=== PATIENT | female | born 1955 | race Caucasian/White ===

== ENCOUNTER 2021-07-23 07:52 | Outpatient (CLI) | payer MEDICARE, SELFPAY ==
--- NOTE | 2021-07-23 08:00 | NM_ITS ---
WS: [id number] NUCLEAR MEDICINE GASTRIC STUDY CLINICAL INFORMATION: R19.4 - Change in bowel habit TECHNIQUE: Following oral ingestion of cooked egg mixed with 0.97 mCi technetium 99m sulfur colloid, anterior images of the stomach were obtained over the course of 90 minutes. Activity curve was perfor med over the course of 90 minutes with linear regression analysis. COMPARISON: None. FINDINGS: Cooked egg mixed with 0.97 mCi technetium 99m sulfur colloid mixture. Normal stomach contour. Signifi cantly delayed gastric emptying compatible with gastroparesis. T1/2 half = 377 minutes (normal is 45-110 minutes) Only 12% emptying at 2 hours. 88% retention at 2 hours. (Normal 30-60% at 2 hours) NM/[place] gastric [place] st 6[address]37 IMPRESSION: Significantly delayed gastric emptying compatible with gastroparesis *Normal median T1 half 90 minutes for solid egg meal (45-110 minutes). Delayed gastric retention is defined as 90% retained at 1 hour, 60% at 2 hour s, 30% at 3 hours, and 10% at 4 hours (normal percent gastric retention is 37-9 0% at 1 hour, 30-60% at 2 hours, and 0-10% at 4 hours).
== END 2021-07-23 07:53 | disposition home or self-care (01) ==
PROVIDERS: Visit Provider Surgery
DX: R19.4 Change in bowel habit (principal); R10.9 Unspecified abdominal pain
CPT/HCPCS: 78264; A9541

== ENCOUNTER 2021-08-16 06:23 | Day surgery (SDC) | payer MEDICARE, SELFPAY ==
[2021-08-13 15:10] VITALS: BMI 37.2
[2021-08-16 06:36] VITALS: BP 177/85; PULSE 123; RESP 16; TEMP 36.2; O2SAT 95
[2021-08-16] MEDS: sodium chloride 0.9% 1,000 ML 30 ML IV (06:41)
--- NOTE | 2021-08-16 06:49 | P.HP_ITS ---
Same Day Surgery H&P Indication for Procedure/HPI DATE OF PROCEDURE: August 16, 2021 CHIEF COMPLAINT/INDICATIONFOR SURGICAL PROCEDURE: Abdominal pain PREOP DIAGNOSIS: Change in bowel habits/abdominal pain PLANNED PROCEDURE: Operation Date: 08/16/21 07:30 Proposed Procedures p EGD(Not Applicable) - Adrian Kennedy MD s Egd 80158/colonoscopy 16105/abd pain R10.9/R19.4 change in bowel habits(Not Applicable) - Adrian Kennedy MD 06/24/2021 This is a pleasant 66 years old female patient with a current weight of 200 pounds and a BMI of 35.4, she comes today escorted by her and she has been having change in bowel habits for quite some time. Patient reports history of diarrhea, nonbloody in nature, has been going on for quite some time.? She reports change in medications of her diabetes but that happened after she started having diarrhea as she does not think it is related to.? Patient denies history of recent travels, antibiotics except for the antibiotics that she was placed on when as she was tested for E. coli according to her knowledge per her stool.? Reports history of water from a well but no specific concern with that regard. no history of sick contacts, history of thyroid disorders for her hypothyroidism and has been on medical management.? Patient reports associated crampy abdominal pain.? Nothing seems to make it better or worse which is associated with vomiting. Patient reports that her gallbladder was taken out via laparoscopic approach back in 1991 and she mentions that she thinks that she has phantom gallbladder attacks her diarrhea is associated with bouts of constipation and her last colonoscopy was about 10 years ago.? Patient denies history of colon cancer and she had a CT scan done recently in [place] per her Primary care provider and that was reported as normal.? Yet I do not have the disc or report available at this point also I do not have any of the lab work that was obtained.? Patient also gives history of fetid and smelly odor on burping which made me concerned about potential underlying gastroparesis associated with her diabetes that make her food is not emptying appropriately and gets fermented in her stomach. Patient reports history of nausea and vomiting associated with previous anesthesia. Outside records were retrieved and a CT scan of the abdomen and pelvis with contrast showed #1 moderate amount stool throughout the colon.? Diverticulosis but no acute diverticulitis. 2.? There is fluid collection without rim enhancement or internal air.? Possible seroma 4 x 2.3 cm.? This is of midline lower abdomen superficial tissues.? No adjacent inflammation to suggest infection. Right hip arthroplasty causing metallic artifact.? Liver, spleen, adrenal glands, kidneys and pancreas show no significant abnormality/change.? Some scarring of the right kidney.? Cholecystectomy clips.? Mild to moderate atherosclerotic disease. We will plan still to proceed with diagnostic EGD and colonoscopy in addition to gastric emptying studies to rule out gastroparesis. Gastric emptying studies were done 07/23/2021 that did show Significantly delayed gastric emptying compatible with gastroparesis ROS All systems have been reviewed negative except as per the above or per problem list Medications/Allergies* Home Medications Medication Instructions Recorded Confirmed Type clopidogrel 75 mg tablet 75 mg PO DAILY 06/24/21 08/13/21 History dulaglutide 3 mg/0.5 mL 3 mg SUBCUT DIRECTED 06/24/21 08/16/21 History subcutaneous pen injector (Trulicity) glipizide 5 mg tablet 5 mg PO DAILY 06/24/21 08/16/21 History levothyroxine 50 mcg capsule 50 mcg PO DAILY 06/24/21 08/16/21 History metoprolol succinate 100 mg 100 mg PO DAILY 06/24/21 08/16/21 History tablet,extended release 24 hr triamterene 37.5 1 cap PO DAILY 06/24/21 08/16/21 History mg-hydrochlorothiazide 25 mg capsule ramipril 5 mg capsule 5 mg PO DAILY 07/09/21 08/16/21 History Allergies/Adverse Reactions Allergy/AdvReac Type Severity Reaction Status Date / Time hydrocodone Allergy Severe vomiting Verified 08/16/21 06:51 meperidine [From Demerol] Allergy Severe vomiting Verified 08/16/21 06:51 nalbuphine [From Nubain] Allergy ADR-Vomitin Verified 08/16/21 06:51 g Current Medications: Generic Name Dose Route Start Last Admin Trade Name Freq PRN Reason Stop Dose Admin Sodium Chloride 1,000 mls @ 30 mls/hr 08/16/21 06:30 08/16/21 06:41 Sodium Chloride 0.9% IV 30 mls/hr .Q24H CAITIE Administration Pertinent History/Comorbid Conditions* Medical History (Updated 07/11/21 @ 07:18 by Jami Rizzo DO) Benign essential HTN Family history of patent foramen ovale Hypothyroidism (acquired) Lymphoma in remission NAWAF on CPAP Type 2 diabetes mellitus, without long-term current use of insulin Surgical History (Updated 07/09/21 @ 09:21 by Jami Rizzo DO) History of abdominoplasty 2016 History of cholecystectomy 1992 - lap ashtyn History of hysterectomy 2013 - partial - still has one ovary History of lateral meniscus repair of left knee History of lateral meniscus repair of right knee History of right hip replacement 2018 History of shoulder surgery Right - scope History of stem cell transplant Family History (Updated 06/24/21 @ 09:24 by Alyssia Escobar) CAD (coronary artery disease) Dementia Denies family history of Diabetes Chronic kidney disease (CKD) Cancer Stroke Social History Smoking and tobacco status: never smoked Alcohol intake: never Lives independently: Yes Household members: spouse Marital status: Pertinent Exam Findings alert, oriented x 3, regular rate & rhythm and procedure specific exam findings (Abdominal examination nontender nondistended soft) Recommendations Surgery/Procedure today (Diagnostic EGD and colonoscopy) Coding Level of Care Code Acute Packaging Line Attendant for Anastasia Wang
--- NOTE | 2021-08-16 07:04 | P.ANESASSM_ITS ---
Pre-Anesthetic Assessment Height/Weight: Height 1.6 m Weight 95.254 kg Temp Pulse Resp BP Pulse Ox 97.2 F L 123 H 16 177/85 95 08/16/21 06:36 08/16/21 06:36 08/16/21 06:36 08/16/21 06:36 08/16/21 06:36 Preop Diagnosis: Change in bowel habits/abdominal pain Operation Date: 08/16/21 07:30 Proposed Procedures p EGD(Not Applicable) - Adrian Kennedy MD s Egd 64702/colonoscopy 53571/abd pain R10.9/R19.4 change in bowel habits(Not Applicable) - Adrian Kennedy MD Familial anesthetic complications: PONV Was Beta Vivian taken within 24 hours: Yes Was Clonidine taken within 24 hours: N/A Last intake: Intake Last Liquid Date 08/15/21 Last Liquid Time 22:30 Last Solid Date 08/14/21 Last Solid Time 00:00 Last Intake: 22:30 Social No alcohol and No tobacco Exam alert, oriented x 3, clear to auscultation bilaterally and regular rate & rhythm Airway Submandibular: within normal limits Cervical ROM: within normal limits Mallampati: Class II Dentition: full Pulmonary Sleep Apnea (CPAP) CV/HEM Arrythmia (rapid HR), Deep Vein Thrombosis and Hypertension PFO Chronic Renal Insufficiency (blood clot to kidney after surgery) Hepatic None reported GI Gastroesophageal Reflux Disease Metabolic Diabetes Mellitus (184) Musc/skel Lower Back Pain Neuropsych None reported Anesthetic Plan ASA status: 3 Anesthesia: MAC Medications/Allergies Home Medications Medication Instructions Recorded Confirmed Last Taken Type clopidogrel 75 mg tablet 75 mg PO DAILY 06/24/21 08/13/21 1 Week Ago History ~08/06/21 dulaglutide 3 mg/0.5 mL 3 mg SUBCUT DIRECTED 06/24/21 08/16/21 08/12/21 [facility] glipizide 5 mg tablet 5 mg PO DAILY 06/24/21 08/16/21 08/15/21 History levothyroxine 50 mcg capsule 50 mcg PO DAILY 06/24/21 08/16/21 08/15/21 History metoprolol succinate 100 mg 100 mg PO DAILY 06/24/21 08/16/21 08/15/21 History tablet,extended release 24 hr triamterene 37.5 1 cap PO DAILY 06/24/21 08/16/21 08/15/21 History mg-hydrochlorothiazide 25 mg capsule ramipril 5 mg capsule 5 mg PO DAILY 07/09/21 08/16/21 08/15/21 History Allergies Allergy/AdvReac Type Severity Reaction Status Date / Time hydrocodone Allergy Severe vomiting Verified 08/16/21 06:51 meperidine [From Demerol] Allergy Severe vomiting Verified 08/16/21 06:51 nalbuphine [From Nubain] Allergy ADR-Vomitin Verified 08/16/21 06:51 g Current Medications Generic Name Dose Route Start Last Admin Trade Name Freq PRN Reason Stop Dose Admin Sodium Chloride 1,000 mls @ 30 mls/hr 08/16/21 06:30 08/16/21 06:41 Sodium Chloride 0.9% IV 30 mls/hr .Q24H CAITIE Administration PFSH Anesthesia Medical History (Updated 07/11/21 @ 07:18 by Jami Rizzo DO) Benign essential HTN Family history of patent foramen ovale Hypothyroidism (acquired) Lymphoma in remission NAWAF on CPAP Type 2 diabetes mellitus, without long-term current use of insulin Surgical History (Updated 07/09/21 @ 09:21 by Jami Rizzo DO) History of abdominoplasty 2016 History of cholecystectomy 1991 - lap ashtyn History of hysterectomy 2012 - partial - still has one ovary History of lateral meniscus repair of left knee History of lateral meniscus repair of right knee History of right hip replacement 2018 History of shoulder surgery Right - scope History of stem cell transplant Family History Other CAD (coronary artery disease) Dementia Denies family history of Diabetes Chronic kidney disease (CKD) Cancer Stroke Social History Smoking and tobacco status: never smoked Alcohol intake: never Lives independently: Yes Household members: spouse Marital status: Data Anesthesia Cardiac Studies: No Data to Display
[2021-08-16 08:19] VITALS: BP 118/75; PULSE 102; RESP 16; TEMP 36.6; O2SAT 97
[2021-08-16 08:35] VITALS: BP 121/80; PULSE 97; RESP 18; O2SAT 99
== END 2021-08-16 09:14 | disposition home or self-care (01) ==
PROVIDERS: Visit Provider Surgery
PROC: 0DJ08ZZ Inspection of Upper Intestinal Tract, Via Natural or Artificial Opening Endoscopic (ICD-10-PCS; CPT 43235; principal; 2021-08-16 07:30)
PROC: 0DJD8ZZ Inspection of Lower Intestinal Tract, Via Natural or Artificial Opening Endoscopic (ICD-10-PCS; CPT 45378; 2021-08-16 07:30)
DX: R10.9 Unspecified abdominal pain (principal); K57.30 Diverticulosis of large intestine without perforation or abscess without bleeding; D13.1 Benign neoplasm of stomach; K29.70 Gastritis, unspecified, without bleeding; K29.80 Duodenitis without bleeding; R19.4 Change in bowel habit; I10 Essential (primary) hypertension; E03.9 Hypothyroidism, unspecified; G47.33 Obstructive sleep apnea (adult) (pediatric); E11.9 Type 2 diabetes mellitus without complications; Z79.4 Long term (current) use of insulin
CPT/HCPCS: 43239; 45378; 83630; 87506; 88305; J2704; J7030

== ENCOUNTER 2021-08-21 13:25 | Outpatient (CLI) | payer MEDICARE, SELFPAY | END 2021-08-21 13:26 | disposition home or self-care (01) | PROVIDERS: Visit Provider Surgery | DX: Z01.89 Encounter for other specified special examinations (principal) | CPT/HCPCS: 83630; 87506 ==

== ENCOUNTER → 2021-08-29 14:25 | Outpatient (BNVA) | payer MEDICARE, SELFPAY | PROVIDERS: Visit Provider Surgery | DX: K57.31 Diverticulosis of large intestine without perforation or abscess with bleeding (principal); K29.90 Gastroduodenitis, unspecified, without bleeding; E11.43 Type 2 diabetes mellitus with diabetic autonomic (poly)neuropathy; K31.84 Gastroparesis; E66.9 Obesity, unspecified | CPT/HCPCS: 99213 ==

== ENCOUNTER → 2022-01-06 10:33 | Outpatient (BNVA) | payer MEDICARE, SELFPAY | PROVIDERS: Visit Provider Surgery | DX: E66.9 Obesity, unspecified (principal); E11.43 Type 2 diabetes mellitus with diabetic autonomic (poly)neuropathy; K31.84 Gastroparesis; Z68.35 Body mass index [BMI] 35.0-35.9, adult | CPT/HCPCS: 99213 ==

== ENCOUNTER → 2022-01-15 14:27 | Outpatient (BNVA) | payer MEDICARE, SELFPAY | PROVIDERS: Visit Provider Internal Medicine Endocrinology, Diabetes & Metabolism | DX: E11.9 Type 2 diabetes mellitus without complications (principal) | CPT/HCPCS: 80048 ==

== ENCOUNTER → 2022-02-04 13:48 | Outpatient (BNVA) | payer MEDICARE, SELFPAY | PROVIDERS: Visit Provider Internal Medicine Endocrinology, Diabetes & Metabolism | DX: R79.89 Other specified abnormal findings of blood chemistry (principal) | CPT/HCPCS: 80076 ==

== ENCOUNTER 2023-12-27 13:52 | Emergency (ER) | payer MEDICARE, SELFPAY ==
[2023-12-27 14:30] VITALS: BP 150/80; PULSE 68; RESP 18; TEMP 36.5; O2SAT 99; BMI 40.7
--- NOTE | 2023-12-27 14:47 | W.ED.BACK ---
HPI - Back Pain/Injury General: Chief Complaint: Back Pain/Injury Stated Complaint: fall/ low back pain Time Seen by Provider: 12/27/23 14:46 History of Present Illness: 68-year-old female comes in today for evaluation of injuries from a trip and fall last night. Patient reports that she was walking across the yard and tripped in a hole causing her to fall forward. Patient caught herself with outstretched arms. Patient reports pain and the pelvis and in the spine. Patient is able to ambulate with minimal difficulty. Patient has been using ibuprofen and menthol patches to help with her discomfort. Patient appears nontoxic. Patient appears in no acute distress. Related Data Home Medications Medication Instructions Recorded Confirmed clopidogrel 75 mg tablet 75 mg PO DAILY 06/24/21 01/08/22 dulaglutide 3 mg/0.5 mL 3 mg SUBCUT DIRECTED 06/24/21 01/08/22 [facility] levothyroxine 50 mcg capsule 50 mcg PO DAILY 06/24/21 01/08/22 metoprolol succinate 100 mg 100 mg PO DAILY 06/24/21 01/08/22 tablet,extended release 24 hr triamterene 37.5 1 cap PO DAILY 06/24/21 01/08/22 mg-hydrochlorothiazide 25 mg capsule ramipril 5 mg capsule 5 mg PO DAILY 07/09/21 01/08/22 alendronate 70 mg tablet mg PO .1 a week 01/06/22 01/08/22 atorvastatin 80 mg tablet 80 mg PO DAILY 01/06/22 01/08/22 empagliflozin 25 mg tablet 25 mg PO DAILY 01/06/22 01/08/22 (Jardiance) glipizide 5 mg tablet 10 mg PO DAILY 01/06/22 01/08/22 Previous Rx's Medication Instructions Recorded pantoprazole 40 mg tablet,delayed 40 mg PO DAILY 30 days #30 tabs 08/16/21 release (Protonix) pantoprazole 40 mg tablet,delayed 40 mg PO DAILY 30 days #30 tabs 01/06/22 release (Protonix) Allergies Allergy/AdvReac Type Severity Reaction Status Date / Time hydrocodone Allergy Severe vomiting Verified 12/27/23 14:30 meperidine [From Demerol] Allergy Severe vomiting Verified 12/27/23 14:30 nalbuphine [From Nubain] Allergy ADR-Vomitin Verified 12/27/23 14:30 g Review of Systems General: Reports: 10 or more systems reviewed and unremarkable except in HPI and below PFSH ED PFSH: Medical History Benign essential HTN Family history of patent foramen ovale Hypothyroidism (acquired) Lymphoma in remission NAWAF on CPAP Type 2 diabetes mellitus, without long-term current use of insulin Surgical History History of abdominoplasty 2016 History of cholecystectomy 1991 - lap ashtyn History of hysterectomy 2013 - partial - still has one ovary History of lateral meniscus repair of left knee History of lateral meniscus repair of right knee History of right hip replacement 2018 History of shoulder surgery Right - scope History of stem cell transplant Family History Other CAD (coronary artery disease) Dementia Denies family history of Diabetes Chronic kidney disease (CKD) Cancer Stroke Social History Smoking and tobacco/nicotine status: never used tobacco/nicotine Alcohol intake: never Substance/Drug Use: never Lives independently: Yes Household members: spouse Marital status: Physical Exam Const: COMMON NORMALS: alert HENMT: COMMON NORMALS: normocephalic HEAD & SCALP: normocephalic Neck/C-Spine: COMMON NORMALS: full ROM CERVICAL SPINE: Yes cervical ROM normal and Yes Paracervical muscle tenderness Resp: COMMON NORMALS: normal respiratory effort Cardio: COMMON NORMALS: regular rate RATE: regular rate Back/Pelvis: THORACIC SPINE/UPPER BACK: No thoracic spinal tenderness and Yes paraspinal muscle tenderness LUMBAR SPINE/LOWER BACK: No lumbar spinal tenderness and Yes paraspinal muscle tenderness Extremity: COMMON NORMALS: normal to inspection Neuro: SENSORIUM/ORIENTATION: Yes alert Skin: COMMON NORMALS: turgor normal GENERAL SKIN EXAM: turgor normal Course Vital Signs: Vital signs: Vital Signs Temperature 97.7 F 12/27/23 14:30 Pulse Rate 68 12/27/23 14:30 Respiratory Rate 18 12/27/23 14:30 Blood Pressure 150/80 12/27/23 14:30 Pulse Oximetry 99 12/27/23 14:30 MDM - Back Pain/Injury Medical Decision Making 68-year-old female comes in today for complaints of neck, back, and pelvis pain. Patient tripped and fell last night and since then has had increased pain and discomfort. Patient is concerned due to a history of osteopenia. Differential diagnosis includes muscle strain, fracture, contusion. Wet read of the x-rays of the neck, thoracic, lumbar, and pelvis noted no fractures or dislocation. Patient reports understanding of exam and recommendations for treatment. Patient was recommended to follow-up with primary care for further instructions. Patient was recommended return to the ER for new concerns. XR interpretation done by ED provider, pending radiology final review Discharge Plan Discharge Patient Disposition: Home Clinical Impression: Muscle strain, Neck pain Fall from slip, trip, or stumble Qualifiers: Encounter type: initial encounter Qualified Code(s): W01.0XXA - Fall on same level from slipping, tripping and stumbling without subsequent striking against object, initial encounter Back pain Qualifiers: Back pain location: low back pain Chronicity: acute Back pain laterality: bilateral Sciatica presence: without sciatica Qualified Code(s): M54.50 - Low back pain, unspecified Condition: Stable Prescriptions: No Action clopidogrel 75 mg tablet 75 mg PO DAILY Hold Instructions: Resume on 08/21/21. triamterene-hydrochlorothiazid 37.5-25 mg capsule 1 cap PO DAILY metoprolol succinate 100 mg tablet extended release 24 hr 100 mg PO DAILY levothyroxine 50 mcg capsule 50 mcg PO DAILY Trulicity 3 mg/0.5 mL pen injector 3 mg SUBCUT DIRECTED Rx Instructions: weekly glipizide 5 mg tablet 10 mg PO DAILY ramipril 5 mg capsule 5 mg PO DAILY atorvastatin 80 mg tablet 80 mg PO DAILY Jardiance 25 mg tablet 25 mg PO DAILY pantoprazole [Protonix] 40 mg tablet,delayed release (DR/EC) 40 mg PO DAILY 30 Days Qty: 30 3RF alendronate 70 mg tablet PO .1 a week Protonix 40 mg tablet,delayed release (DR/EC) 40 mg PO DAILY 30 Days Qty: 30 3RF Discharge Orders: Discharge ED (Routine); Ordered 12/27/23 Ordered By: Brett Gomez Discharge Diet: Usual diet Discharge Activity: Increase activity as tolerated Patient Instructions: Musculoskeletal Pain (ED) Activity Restrictions/Additional Instructions: Continue with your [id number] treatments for your pain. Drink plenty of water with medication. Use cold packs or warm soaks for further pain relief. Follow-up with primary care for further instructions. Return to ED for new concerns. Coding Level of Care Code ED [employer]inated [employer] Assembler And Gluer for Anastasia Wang
--- NOTE | 2023-12-27 14:57 | XRR_ITS ---
PROCEDURE INFORMATION: Exam: XR Thoracic Spine Exam date and time: 12/27/2023 3:16 PM Age: 68 years old Clinical indication: Injury or trauma; Fall; Blunt trauma (contusions or hematomas) TECHNIQUE: Imaging protocol: Radiologic exam of the thoracic spine. Views: 3 views. COMPARISON: CR XR cervical spine 3V* [id number] 12/27/2023 3:16 PM FINDINGS: Bones/joints: Mild multilevel anterior osteophytes of the thoracic spine. No compression deformity. No spondylolisthesis. Soft tissues: Unremarkable. Vasculature: Vascular calcifications. XR/XR thoracic spine 3V* [id number] IMPRESSION: No posttraumatic changes in the thoracic spine.
--- NOTE | 2023-12-27 14:57 | XRR_ITS ---
PROCEDURE INFORMATION: Exam: XR Cervical Spine Exam date and time: 12/27/2023 3:16 PM Age: 68 years old Clinical indication: Injury or trauma; Fall; Blunt trauma TECHNIQUE: Imaging protocol: Radiologic exam of the cervical spine. Views: 2 or 3 views. COMPARISON: CR (CHEST, ) 12/27/2023 3:16 PM FINDINGS: Bones/joints: Small multilevel anterior osteophytes of the cervical spine with preserved disc spaces, consistent with mild degenerative disease. Fused facet joints at C2-C3 level. No compression deformity. No spondylolisthesis. Soft tissues: Unremarkable. XR/XR cervical spine 3V* [id number] IMPRESSION: No acute fracture or dislocation.
--- NOTE | 2023-12-27 14:57 | XRR_ITS ---
PROCEDURE INFORMATION: Exam: XR Lumbosacral Spine Exam date and time: 12/27/2023 3:16 PM Age: 68 years old Clinical indication: Injury or trauma; Fall; Blunt trauma (contusions or hematomas); Prior surgery; Surgery date: 6+ months; Surgery type: Stimulator TECHNIQUE: Imaging protocol: Radiologic exam of the lumbosacral spine. Views: 2 or 3 views. COMPARISON: CR (PELVIS, ) 12/27/2023 3:16 PM FINDINGS: Tubes, catheters and devices: Bladder stimulator device. Bones/joints: Bilateral hip arthroplasty. Mild curvature of the lumbar spine convex to the left. No compression deformity. No spondylolisthesis. Bilateral facet joint arthropathy at L3-L4, L4-L5 and L5-S1 levels. Mild narrowing of the L3-L4, L4-L5 and L5-S1 disc spaces with anterior and posterior osteophytes. Soft tissues: Unremarkable. Organs: Post cholecystectomy. Vasculature: Aortic calcifications. XR/XR lumbar spine 2-3V* [id number] IMPRESSION: No posttraumatic changes.
--- NOTE | 2023-12-27 14:57 | XRR_ITS ---
PROCEDURE INFORMATION: Exam: XR Pelvis Exam date and time: 12/27/2023 3:16 PM Age: 68 years old Clinical indication: Injury or trauma; Fall; Blunt trauma (contusions or hematomas); Bilateral; Pelvic region; Prior surgery; Surgery date: 6+ months; Surgery type: Alan hip stimulator TECHNIQUE: Imaging protocol: Radiologic exam of the pelvis. Views: 1 or 2 view. COMPARISON: CR XR lumbar spine 2-3V* [id number] 12/27/2023 3:16 PM FINDINGS: Tubes, catheters and devices: Sacral stimulator. Bones/joints: Bilateral hip arthroplasty with no hardware complications. Moderate degenerative disease of the symphysis pubis and bilateral sacroiliac joints. No acute fracture or dislocation. Soft tissues: Unremarkable. XR/XR pelvis 1-2V* [id number] IMPRESSION: No acute fracture or dislocation.
[2023-12-27 16:57] VITALS: BP 120/70; PULSE 65; O2SAT 94
== END 2023-12-27 16:32 | disposition home or self-care (01) ==
PROVIDERS: Emergency Provider Nurse Practitioner Family
DX: S16.1XXA Strain of muscle, fascia and tendon at neck level, initial encounter (principal); S39.012A Strain of muscle, fascia and tendon of lower back, initial encounter; W01.0XXA Fall on same level from slipping, tripping and stumbling without subsequent striking against object, initial encounter; Z79.02 Long term (current) use of antithrombotics/antiplatelets; Z79.85 Long-term (current) use of injectable non-insulin antidiabetic drugs; Z79.84 Long term (current) use of oral hypoglycemic drugs; I10 Essential (primary) hypertension; E11.9 Type 2 diabetes mellitus without complications; Z85.72 Personal history of non-Hodgkin lymphomas
CPT/HCPCS: 72040; 72072; 72100; 72170; 99284